=== PATIENT | female | born 1990 | race African-American/Black ===

== ENCOUNTER 2018-09-15 18:22 | Emergency (ER) | payer SELFPAY ==
[~2018-09-15] VITALS: Ht 158.8 cm; Wt 98.3 kg
[2018-09-15 18:31] VITALS: BP 141/60
--- NOTE | 2018-09-15 18:47 | NUR ---
PT IN IMAGING NOW.
[2018-09-15] MEDS ORDERED: KETOROLAC 30 MG/1 ML IM ONE (19:30)
[2018-09-15] MEDS ORDERED: KETOROLAC 30 MG/1 ML ONE (19:58)
== END 2018-09-15 20:12 | disposition home or self-care (01) ==
LOC: ED 20:06
DX: S16.1XXA Strain of muscle, fascia and tendon at neck level, initial encounter (principal); S29.012A Strain of muscle and tendon of back wall of thorax, initial encounter; S40.012A Contusion of left shoulder, initial encounter; V43.52XA Car driver injured in collision with other type car in traffic accident, initial encounter; Y93.89 Activity, other specified; Y92.89 Other specified places as the place of occurrence of the external cause; Y99.8 Other external cause status
CPT/HCPCS: 71101; 72072; 73030; 96372; 99283; J1885